=== PATIENT | female | born 1980 | race Caucasian/White ===

== ENCOUNTER 2021-09-14 15:00 | Emergency (ER) | payer MEDICARE ==
[~2021-09-14] VITALS: Ht 172.7 cm; Wt 167.8 kg
[2021-09-14] MEDS ORDERED: PRILOSEC OTC20 MG PO (15:14)
[2021-09-14 15:45] VITALS: BP 141/86
--- NOTE | 2021-09-15 16:35 | EKG ---
[place] [address] ELECTROCARDIOGRAM REPORT Name: DENIS TELLO Room: [facility]#: [id number] Admission: 09/14/21 Attend Phys: Discharge: 09/14/21 Date of : 84 Date of Service: 09/14/21 1508 Report #: [id number] THIS REPORT FOR: //name// [facility] ED Test Date: 2021-09-14 Test Time: 15:08:49 Pat Name: DENIS TELLO Department: Room: Gender: Route Carrier: UYEN : 1980 Requested By: Garrett Jones Order Number: [id number] MD: Jagjit Mendez Measurements Intervals [place] Rate: 86 P: 38 [place]: 164 QRS: 39 QRSD: 81 T: 20 QT: 349 QTc: 418 Interpretive Statements Sinus rhythm Ventricular premature complex Low voltage, precordial leads Consider anterior infarct No previous ECG available for comparison Electronically Signed On 09-15-2021 16:34:45 [employer] by Jagjit Mendez [email or web address] <ELECTRONICALLY SIGNED> By: Jagjit Mendez MD, [facility] 09/15/21 1634 1508 1508 Jagjit Mendez MD, [facility] /EPI
== END 2021-09-14 16:01 | disposition left against medical advice (07) ==
LOC: M.ERS 15:00
DX: M25.512 Pain in left shoulder (principal); R07.89 Other chest pain; Z53.21 Procedure and treatment not carried out due to patient leaving prior to being seen by health care provider